=== PATIENT | male | born 1995 | race Caucasian/White ===

== ENCOUNTER 2018-05-13 17:45 | Emergency (ER) | payer BC ==
[2018-05-13 17:49] VITALS: BP 142/84; PULSE 65; TEMP 97; BMI 21.9
--- NOTE | 2018-05-13 18:08 | PDOC ---
History of Present Illness - General Chief Complaint: Rash Stated Complaint: ALLERGIC REACTION Time Seen by Provider: 05/13/18 17:56 History Source: Patient, Parent(s) - History of Present Illness Timing/Duration: reports: other Location: reports: extremities, torso Past History - Past Medical History Allergies/Adverse Reactions: Allergies Allergy/AdvReac Type Severity Reaction Status Date / Time egg Allergy Verified 05/13/18 17:49 peanut Allergy Verified 05/13/18 17:49 Home Medications: Ambulatory Orders Clobetasol Propionate [Temovate] 30 gm TP BID #1 oint...g. 05/13/18 Asthma: Yes COPD: No - Immunization History Immunization Up to Date: Yes - Suicide/Smoking/Psychosocial Hx Smoking Status: No Smoking History: Never smoked Number of Cigarettes Smoked Daily: 0 Review of Systems - Review of Systems Constitutional: No: Chills, Fever Respiratory: No: Shortness of Breath, Stridor, Wheezing Integumentary: Yes: Pruritus, Rash *Physical Exam - Vital Signs Last Vital Signs Temp Pulse Resp BP Pulse Ox 97 F L 65 18 142/84 99 05/13/18 17:47 05/13/18 17:47 05/13/18 17:47 05/13/18 17:47 05/13/18 17:47 - Physical Exam General Appearance: Yes: Appropriately Dressed. No: Apparent Distress HEENT: positive: Normal Voice Neck: positive: Supple Respiratory/Chest: negative: Respiratory Distress Integumentary: positive: Dry, Warm, Other (pinpoint, erythematous papules to b/ l antecub, neck and chest, no hand/fingerweb involvement) Neurologic: positive: Fully Oriented, Alert, Normal Mood/Affect Medical Decision Making - Medical Decision Making 05/13/18 18:12 23-year-old male here with rash. Patient states he developed pruritic rash to bilateral upper extremity, neck and chest several days ago. Using Benadryl with some relief. Denies any obvious inciting factors and no sick contacts or recent travel. Denies any other symptoms at this time. Mother in ED and states patient has had similar rash on and off for several years and follows up with Dr. Victoria of dermatology and usually treated with clobetasol ointment with resolution of rash. States patient no longer has ointment at home and states she was told to come to ED by patient's estimator project manager. Patient well- appearing and stable with pinpoint, erythematous, papular rash to bilateral antecub fossa, neck and upper chest that is nonspecific in appearance. Dc with refill on steroid ointment, to f/u with derm *DC/Admit/Observation/Transfer Diagnosis at time of Disposition: Rash and nonspecific skin eruption - Discharge Dispostion Disposition: HOME Condition at time of disposition: Good - Prescriptions Prescriptions: Clobetasol Propionate [Temovate] 30 gm TP BID #1 oint...g. - Referrals Referrals: Edgar Abbasi MD [Primary Care Provider] - - Patient Instructions Printed Discharge Instructions: DI for Rash Additional Instructions: Use ointment as directed and continue to follow-up with your estimator project manager - Post Discharge Activity
== END 2018-05-13 18:30 | disposition home or self-care (01) ==
LOC: JERFT 17:45
DX: R21 Rash and other nonspecific skin eruption (principal); J45.909 Unspecified asthma, uncomplicated
CPT/HCPCS: 99281-25

== ENCOUNTER 2019-09-13 16:10 | Emergency (ER) | payer BC ==
[2019-09-13 16:15] VITALS: BP 132/64; PULSE 90; TEMP 98; BMI 24.2
--- NOTE | 2019-09-13 17:13 | PDOC ---
History of Present Illness - General Chief Complaint: Rash Stated Complaint: ECZEMA Time Seen by Provider: 09/13/19 16:42 History Source: Patient Exam Limitations: No Limitations Past History - Past Medical History Allergies/Adverse Reactions: Allergies Allergy/AdvReac Type Severity Reaction Status Date / Time egg Allergy Verified 09/13/19 16:16 peanut Allergy Verified 09/13/19 16:16 Home Medications: Ambulatory Orders Clobetasol Propionate [Temovate] 30 gm TP BID #1 oint...g. 05/13/18 Albuterol 0.083% Nebulizer Deepti [Ventolin 0.083% Nebulizer Soln -] 1 neb NEB Q4H PRN #30 vial 07/20/19 Albuterol Sulfate Inhaler - [Ventolin HFA Inhaler -] 1 - 2 inh PO Q4H PRN #1 inhaler 07/20/19 Nebulizer [Aeroneb Go Nebulizer] 1 each MC ONCE #1 each 07/20/19 predniSONE [Deltasone] 40 mg PO DAILY #8 tablet 07/20/19 Asthma: Yes COPD: No - Immunization History Immunization Up to Date: Yes - Psycho Social/Smoking Cessation Hx Smoking Status: No Smoking History: Never smoked Have you smoked in the past 12 months: No Number of Cigarettes Smoked Daily: 0 Hx Alcohol Use: No Drug/Substance Use Hx: No *Physical Exam - Vital Signs Last Vital Signs Temp Pulse Resp BP Pulse Ox 98 F 90 18 132/64 98 09/13/19 16:13 09/13/19 16:13 09/13/19 16:13 09/13/19 16:13 09/13/19 16:13 - Physical Exam General Appearance: No: Apparent Distress Integumentary: positive: Rash (dryness, thickening of skin along face/neck; few areas along arms/back noted as well ). negative: Erythema, Mottled, Hives, Petechiae, Ecchymosis, Bruising Neurologic: positive: Alert Medical Decision Making - Medical Decision Making 24 y/o M hx of asthma, eczema presents with worsening of his eczema along his face and neck the past 2 days. Has been seeing a clinical trial leader for his eczema and is already taking a topical steroid twice a day. Last saw his clinical trial leader 1.5 weeks ago and was prescribed another medication, but states has not yet had the chance to pick it up. Is also using CeraVe lotion. Denies fever, other complaints Supportive care discussed Advised to take new med prescribed by his clinical trial leader 09/13/19 17:09 Discharge - Discharge Information Problems reviewed: Yes Clinical Impression/Diagnosis: Eczema Qualifiers: Eczema type: unspecified Qualified Code(s): L30.9 - Dermatitis, unspecified Condition: Stable Disposition: HOME - Admission No - Additional Discharge Information Prescription Drug Monitoring Program (I-STOP) results: I-STOP not reviewed - Follow up/Referral - Patient Discharge Instructions Patient Printed Discharge Instructions: DI for Atopic Dermatitis - Adult Additional Instructions: Thank you for choosing [facility]. It was a pleasure taking care of you. Recommend trying Aquaphor ointment to help with rash Can also do oatmeal baths Continue use of the topical steroid Also use the new medication prescribed by your clinical trial leader. Return to the Emergency Department if your symptoms worsen or persist or have other concerning symptoms. - Post Discharge Activity
== END 2019-09-13 17:19 | disposition home or self-care (01) ==
LOC: JERFT 16:10
DX: L30.9 Dermatitis, unspecified (principal); J45.909 Unspecified asthma, uncomplicated; Z91.012 Allergy to eggs; Z91.018 Allergy to other foods
CPT/HCPCS: 99281-25

== ENCOUNTER 2019-12-23 05:06 | Emergency (ER) | payer BC ==
--- NOTE | 2019-12-23 05:13 | PDOC ---
History of Present Illness - General Chief Complaint: Asthma Stated Complaint: ASTHMA Time Seen by Provider: 12/23/19 05:12 History Source: Patient Exam Limitations: No Limitations - History of Present Illness Initial Comments: Pt is a 24 yo M, with intermittent asthma and eczema, who is presenting with complaints of chest tightness for 2 hours. Pt states he only intermittently gets chest tightness (once per ~6 months), which is relieved by 1-2 pumpos of his albuterol, but her ran out of his albuterol inhaler a few months ago. Pt states his trigger is dust, and tonight his friend was cleaning with a feather duster in the same room. Pt denies any recent fevers/chills, headache, vision changes, syncope, cough, chest pain, palpitations, nausea/vomiting, abdominal pain, urin yair symptoms, diarrhea/constipation, or leg swelling. Allergies: NKDA. Allergic to peanuts, eggs, dust. PCP: None Social: Pt denies any cigarette, alcohol, or drug use. Pt denies any recent travel or sick contacts. Surgical: no relevant history. Family: no relevant history. 12/23/19 06:57 12/27/19 09:09 12/27/19 09:12 Past History - Travel Traveled outside of the country in the last 30 days: No Close contact w/someone who was outside of country & ill: No - Past Medical History Allergies/Adverse Reactions: Allergies Allergy/AdvReac Type Severity Reaction Status Date / Time egg Allergy Verified 12/23/19 05:11 peanut Allergy Verified 12/23/19 05:11 Home Medications: Ambulatory Orders Clobetasol Propionate [Temovate] 30 gm TP BID #1 oint...g. 05/13/18 Albuterol 0.083% Nebulizer Deepti [Ventolin 0.083% Nebulizer Soln -] 1 neb NEB Q4H PRN #30 vial 07/20/19 Albuterol Sulfate Inhaler - [Ventolin HFA Inhaler -] 1 - 2 inh PO Q4H PRN #1 inhaler 07/20/19 Nebulizer [Aeroneb Go Nebulizer] 1 each MC ONCE #1 each 07/20/19 predniSONE [Deltasone] 40 mg PO DAILY #8 tablet 07/20/19 Albuterol 0.083% Nebulizer Deepti [Ventolin 0.083% Nebulizer Soln -] 1 neb NEB Q4H PRN #1 inhaler 12/23/19 Albuterol Sulfate Inhaler - [Ventolin HFA Inhaler -] 1 - 2 inh PO Q4H #1 inhaler 12/23/19 predniSONE [Deltasone -] 40 mg PO DAILY 5 Days #10 tablet 12/23/19 predniSONE [Deltasone -] 40 mg PO DAILY 5 Days #10 tablet 12/23/19 Asthma: Yes COPD: No - Immunization History Immunization Up to Date: Yes - Psycho Social/Smoking Cessation Hx Smoking Status: No Smoking History: Never smoked Have you smoked in the past 12 months: No Number of Cigarettes Smoked Daily: 0 Hx Alcohol Use: No Drug/Substance Use Hx: No Respiratory Specific PMHX - Complaint Specific PMHX Hx Airway Support: No Hx Intubation: No Hx Asthma: Yes Hx Smoking Exposure: No Hx Vaping: No Hx Allergic Rhinitis: No Hx Exposure to Respiratory Irritants: Yes Hx Bronchitis: No Hx Pneumonia: No Hx Pulmonary Embolus: No Hx TB (Tuberculosis): No Review of Systems - Review of Systems Able to Perform ROS?: Yes Is the patient limited [place] proficient: No Constitutional: Yes: Weight Stable. No: Chills, Diaphoresis, Fever, Loss of Appetite, Malaise, Weakness HEENTM: No: Recent change in vision, Nose Congestion, Throat Pain, Throat Swelling, Difficulty Swallowing Respiratory: Yes: Shortness of Breath, SOB at Rest, Wheezing. No: Cough, Orthopnea, Productive cough, Hemoptysis Cardiac (ROS): Yes: Chest Tightness. No: Chest Pain, Edema, Irregular Heart Rate, Lightheadedness, Palpitations, Syncope ABD/GI: No: Constipated, Diarrhea, Nausea, Poor Appetite, Poor Fluid Intake, Vomiting, Abdominal cramping : No: Burning, Dysuria, Frequency, Hematuria, Pain, Urgency Musculoskeletal: No: Back Pain, Joint Pain, Muscle Pain Integumentary: No: Rash Neurological: No: Headache, Numbness, Weakness, Unsteady Gait, Dizziness Psychiatric: No: Sleep Pattern Change, Change in Appetite Endocrine: No: Increased Urine, Change in Weight Hematologic/Lymphatic: No: Anemia, Blood Clots, Easy Bleeding, Easy Bruising All Other Systems: Reviewed and Negative *Physical Exam - Vital Signs Last Vital Signs Temp Pulse Resp BP Pulse Ox 97.9 F 66 18 148/76 97 12/23/19 05:07 12/23/19 05:07 12/23/19 05:07 12/23/19 05:07 12/23/19 05:07 - Physical Exam Vitals stable, pt afebrile. Pt in NAD, ambulatory in ED without assistance. Normal body habitus. Pt alert and oriented x3. yarn examiner skeins generally intact, muscular strength and sensation intact. No midline spinal tenderness, step-offs, or crepitus. Head normocephalic, atraumatic. Eyes PERRLA, EOMI. Oropharynx without erythema or exudates, no LAD b/l. No nasal congestion. Hearing intact. Clear heart sounds, S1/S2, no JVD, b/l pedal edema, or heart murmur. End expiratory wheezing throughout. No crackles, rales, or accessory muscle use. No abdominal or CVA tenderness to palpation, no rebound, no guarding. Abdomen soft, non-distended, and with normoactive bowel sounds. Skin without jaundice or rash. 12/27/19 09:14 Medical Decision Making - Medical Decision Making Pt was seen at bedside, also will be seen by attending Dr. Ivey. Pt presenting with mild expiratory wheezing. Pt has controlled, intermittent asthma, no prior intubations or hospitalizations. Pt has specific trigger explaining his exacerbations. No other URI symptoms. Does not meet criteria for chatterjee testing. Provided albuterol nebs for improvement of wheezing. Will continue to reassess pt and monitor for symptomatic improvement. 12/27/19 09:46 Pt improved after nebulizers, sent additional albuterol MDI to pts pharmacy, with short steroid treatment to prevent further exacerbation. Pt safe for d/c to home with PCP f/u. Strict return precautions provided with pt understanding. 12/27/19 09:47 Discharge - Discharge Information Problems reviewed: Yes Clinical Impression/Diagnosis: Asthma exacerbation Qualifiers: Asthma severity: mild Asthma persistence: intermittent Qualified Code(s): J45.21 - Mild intermittent asthma with (acute) exacerbation Condition: Stable Disposition: HOME - Admission No - Additional Discharge Information Prescriptions: predniSONE [Deltasone -] 40 mg PO DAILY 5 Days #10 tablet predniSONE [Deltasone -] 40 mg PO DAILY 5 Days #10 tablet Albuterol 0.083% Nebulizer Deepti [Ventolin 0.083% Nebulizer Soln -] 1 neb NEB Q4H PRN #1 inhaler PRN Reason: Wheezing Albuterol Sulfate Inhaler - [Ventolin HFA Inhaler -] 1 - 2 inh PO Q4H #1 inhaler - Follow up/Referral Referrals: [facility] [place] [facility] [Provider Group] - Patient Discharge Instructions Patient Printed Discharge Instructions: Asthma -- Adult Additional Instructions: You were seen in the ER today for your asthma, which improved after breathing treatments. Please follow-up with your primary care doctor within 1-2 days to discuss your visit and make sure your symptoms have improved. Please return to the ER if you have any worsening pain, development of fevers or chills, loss of consciousness, inability to tolerate food or fluids, or any other concerns. I have sent medications to your pharmacy. Please take these medications as prescribed. - Post Discharge Activity
[2019-12-23 05:15] VITALS: BMI 24.5
--- NOTE | 2019-12-23 05:17 | PDOC ---
Attending Attestation - Resident Resident Name: Zoya Anthony - ED Attending Attestation I have performed the following: I have examined & evaluated the patient, The case was reviewed & discussed with the resident, I agree w/resident's findings & plan - HPI HPI: 01/03/20 20:07 Pt comes with usual asthma exacerbation - Physicial Exam PE: 01/03/20 20:08 Agree with resident exam; wheezy lungs; slowly clearing - Medical Decision Making 12/23/19 05:56 asthma exacerbation; pt slowly improved in the ER Discharge - Discharge Information Problems reviewed: Yes Clinical Impression/Diagnosis: Asthma exacerbation Qualifiers: Asthma severity: mild Asthma persistence: intermittent Qualified Code(s): J45.21 - Mild intermittent asthma with (acute) exacerbation Condition: Stable Disposition: HOME - Additional Discharge Information Prescriptions: predniSONE [Deltasone -] 40 mg PO DAILY 5 Days #10 tablet predniSONE [Deltasone -] 40 mg PO DAILY 5 Days #10 tablet Albuterol 0.083% Nebulizer Deepti [Ventolin 0.083% Nebulizer Soln -] 1 neb NEB Q4H PRN #1 inhaler PRN Reason: Wheezing Albuterol Sulfate Inhaler - [Ventolin HFA Inhaler -] 1 - 2 inh PO Q4H #1 inhaler - Follow up/Referral Referrals: [facility] [place] [facility] [place] [Provider Group] - Patient Discharge Instructions Patient Printed Discharge Instructions: Asthma -- Adult Additional Instructions: You were seen in the ER today for your asthma, which improved after breathing treatments. Please follow-up with your primary care doctor within 1-2 days to discuss your visit and make sure your symptoms have improved. Please return to the ER if you have any worsening pain, development of fevers or chills, loss of consciousness, inability to tolerate food or fluids, or any other concerns. I have sent medications to your pharmacy. Please take these medications as prescribed. - Post Discharge Activity
[2019-12-23] MEDS ORDERED: ALBUTEROL SO4 0.083% IH SOL 2.5 MG/3 ML VIAL.NEB. NEB PRN (05:22)
[2019-12-23] MEDS ORDERED: ALBUTEROL SO4 0.083% IH SOL 2.5 MG/3 ML VIAL.NEB. NEB ONE (05:27)
[2019-12-23] MEDS ORDERED: predniSONE 20 MG TABLET (UD) PO ONE (05:29)
[2019-12-23] MEDS ORDERED: predniSONE 20 MG TABLET (UD) ONE (05:57)
[2019-12-23 06:36] VITALS: BP 114/74; PULSE 82; TEMP 97.8
== END 2019-12-23 06:36 | disposition home or self-care (01) ==
LOC: JER 05:06
PROC: 3E0F7GC Introduction of Other Therapeutic Substance into Respiratory Tract, Via Natural or Artificial Opening (ICD-10-PCS; principal; 2019-12-23)
DX: J45.21 Mild intermittent asthma with (acute) exacerbation (principal)
CPT/HCPCS: 99283-25